=== PATIENT | male | born 1950 | race Caucasian/White ===

== ENCOUNTER 2021-05-08 21:11 | Observation (INO) ==
[2021-05-08] MEDS ORDERED: BUPIVACAINE MPF 0.25% 30 ML VIAL ONE (21:26)
[2021-05-08] MEDS ORDERED: DIPH/TET/ACEL PERT BOOSTER VACCINE 0.5 ML VIAL IM ONE (21:39)
[2021-05-08] MEDS ORDERED: SODIUM CHLORIDE 0.9% 1,000 ML IV STA (22:10)
[2021-05-08] MEDS ORDERED: HYDROmorphone 2 MG/1 ML VIAL IV PRN (22:17)
[2021-05-08] MEDS ORDERED: ceFAZolin 2,000 MG/50 ML DUPLEX IV ONE (22:17)
[2021-05-08] MEDS ORDERED: MAGNESIUM HYDROXIDE SUSP 30 ML UDCUP PO PRN (22:17)
[2021-05-08] MEDS ORDERED: PROMETHAZINE 25 MG/1 ML VIAL IM PRN (22:17)
[2021-05-08] MEDS ORDERED: oxyCODONE/ACETAMINOPHEN 5-325 MG TABLET PO PRN (22:17)
[2021-05-08] MEDS ORDERED: MORPHINE 2 MG/1 ML SYRINGE IV PRN (22:17)
[2021-05-08] MEDS ORDERED: ONDANSETRON 4 MG/2 ML VIAL IV PRN (22:17)
[2021-05-08] MEDS ORDERED: SODIUM CHLORIDE 0.9% 1,000 ML IV SCH (22:30)
[2021-05-08 23:12] LABS: Basophils # 0.1 10*3/uL (0.0-0.2); Basophils % 0.9 % (0.0-0.8); Eosinophils # 0.1 10*3/uL (0.0-0.87); Hemoglobin 14.4 GM/DL (14.0-18.0); Immature Granulocytes % 0.6 %; Immature Granulocytes Absolute 0.04 #; Lymphocytes # 1.1 10*3/uL (1.4-4.0); Lymphocytes % 15.1 % (21.2-54.2); Mean Corpuscular HGB Conc 33.5 GM/DL (32-36); Mean Corpuscular Volume 97.3 FL (87-102); Mean Platelet Volume 10.3 FL (9.6-12.0); Neutrophils % 72.4 % (38.7-73.9); Platelet Count 228 T/CUMM (130-400); Red Blood Count 4.42 MC/CUMM (3.8-5.5); Red Cell Distribution Width 12.9 % (9.3-17.3)
[2021-05-08 23:20] LABS: PT Patient Result 10.9 SECS (10.5-12.0)
[2021-05-08 23:56] LABS: Alanine Aminotransferase 21 U/L (16-61); Albumin 3.9 G/DL (3.4-5.0); Alkaline Phosphatase 68 U/L (45-117); Aspartate Amino Transferase 18 U/L (0-37); Bilirubin,Total < 0.39 MG/DL (0.20-1.00); Blood Urea Nitrogen 36 MG/DL (7-18); Estimated Glom Filtration Rate 82 ML/MIN; Glucose 95 MG/DL (74-106); Total Protein 6.9 G/DL (6.4-8.2)
[2021-05-09 00:14] LABS: Carbon Dioxide 29 MMOL/L (21-32); Osmolality,Calculated 284.5 MOS/KG (273-304); Potassium 4.1 MMOL/L (3.5-5.1); Sodium 139 MMOL/L (136-145)
[2021-05-09] MEDS ORDERED: ceFAZolin 2,000 MG/50 ML DUPLEX IV ONE (06:00)
[2021-05-09] MEDS ORDERED: SEVOFLURANE 1 UNIT/15 MINUTE INH ONE (07:29)
[2021-05-09] MEDS ORDERED: LIDOCAINE 2% 5 ML VIAL ONE (07:29)
[2021-05-09] MEDS ORDERED: propofoL 200 MG/20 ML VIAL IV ONE (07:29)
[2021-05-09] MEDS ORDERED: MIDAZOLAM 2 MG/2 ML VIAL ONE (07:30)
[2021-05-09] MEDS ORDERED: fentaNYL 100 MCG/2 ML VIAL ONE (07:30)
[2021-05-09] MEDS ORDERED: LIDOCAINE 1% 20 ML VIAL ONE (07:52)
[2021-05-09] MEDS ORDERED: ePHEDrine 50 MG/ML VIAL ONE (08:35)
[2021-05-09] MEDS ORDERED: BUPIVACAINE MPF 0.25% 30 ML VIAL ONE ×2 (08:40)
[2021-05-09] MEDS ORDERED: BUPIVACAINE 0.5% 50 ML VIAL ONE (08:44)
[2021-05-09] MEDS ORDERED: PANTOPRAZOLE 40 MG TABLET PO SCH (09:00)
[2021-05-09] MEDS ORDERED: ONDANSETRON 4 MG/2 ML VIAL ONE (09:16)
[2021-05-09] MEDS ORDERED: DEXAMETHASONE 4 MG/1 ML VIAL ONE (09:16)
[2021-05-09 11:44] VITALS: BP 121/68
== END 2021-05-09 12:28 | disposition home or self-care (01) ==
LOC: N.ED 21:11 → N.EDINP 21:11 → N.5E 05-09 01:26
PROVIDERS: ADMIT Orthopaedic Surgery; ATTEND Orthopaedic Surgery